=== PATIENT | male | born 1965 | race Two or more races ===

== ENCOUNTER 2021-01-12 14:35 | Inpatient (IN) | payer OTHER ==
[~2021-01-12] VITALS: Ht 172.7 cm; Wt 82.3 kg
--- NOTE | 2021-01-12 14:42 | NUR ---
KENJI FROM [facility]. EMS STATES HE TOOK 20 UNISOM PILLS WHICH CONTAINED 325 OF TYLENOL AND 50 BENADRYL AND ALSO SONSUMED LOTS OF ALCOHOL. PTS NIECE CALLED EMS BECAUSE HE WAS HAVING THOUGHTS OF SI. VSS. PT IS LETHARGIC AND NOT ANSWERING QUESTIONS.
--- NOTE | 2021-01-12 14:44 | NUR ---
PT ON LEGAL HOLD AND BELONGINGS IN LOCKER.
[2021-01-12 15:00] LABS: BASOPHILS % (AUTO) 1 % (0-1); EOSINOPHILS % (AUTO) 5 % (1-7); LYMPHOCYTES % (AUTO) 30 % (22-44); MEAN CORPUSCULAR HEMOGLOBIN 30.6 pg (27.5-34.5); MEAN CORPUSCULAR HGB CONC 33.8 g/dL (33.2-36.2); MEAN PLATELET VOLUME 9.4 fL (7.4-10.4); MONOCYTES % (AUTO) 11 % (2-9); NEUTROPHILS % (AUTO) 54 % (42-75); RED BLOOD COUNT 3.98 x10^6/uL (4.38-5.82); RED CELL DISTRIBUTION WIDTH 15.1 % (9.4-14.8)
[2021-01-12] MEDS ORDERED: NALOXONE 0.4 MG/ML, 1ML IVPush PRN (15:00)
[2021-01-12] MEDS: PLEASE ENTER ALLERGIES MC SCH ×2 (15:00→23:00)
[2021-01-12] MEDS ORDERED: SODIUM CHLORIDE 0.9% 1,000 ML IV ONE (15:00)
[2021-01-12] MEDS ORDERED: NALOXONE 0.4 MG/ML, 1ML ONE (15:05)
[2021-01-12 15:08] LABS: ALANINE AMINOTRANSFERASE 62 U/L (12-78); ALBUMIN 3.1 g/dL (3.4-5.0); ANION GAP 8 mmol/L (5-15); CALCIUM 8.3 mg/dL (8.5-10.1); CHLORIDE 116 mmol/L (98-107); CREATININE 0.51 mg/dL (0.7-1.3); SALICYLATE LEVEL 1.8 mg/dL (2.8-20.0)
--- NOTE | 2021-01-12 15:12 | NUR ---
NARCAN NOTED TO HAVE NO EFFECT ON PT
--- NOTE | 2021-01-12 15:15 | NUR ---
PT OFF UNIT IN IMAGING
[2021-01-12 15:20] LABS: ALKALINE PHOSPHATASE 167 U/L (45-117); BILIRUBIN,TOTAL 0.7 mg/dL (0.2-1.0); TOTAL PROTEIN 7.4 g/dL (6.4-8.2)
[2021-01-12] MEDS ORDERED: CEFTRIAXONE PMX 1GM/50ML 50 ML IV ONE (15:30)
[2021-01-12] MEDS ORDERED: AZITHROMYCIN 500 MG in SODIUM CHLORIDE 0.9% 250 ML IV ONE (15:30)
[2021-01-12 15:53] LABS: MD SCAN; PLATELET COUNT 47 x10^3/uL (130-400)
[2021-01-12] MEDS ORDERED: CEFTRIAXONE PMX 1GM/50ML 50 ML ONE (16:06)
--- NOTE | 2021-01-12 16:25 | NUR ---
PT NOTED TO ATTEMPT TO VOMIT, HOWEVER PT UNABLE TO DO SO, CONCERNS FOR ASPIRATION, SUCTION USED, PT DOES NOT APPEAR TO HAVE A GAG REFLEX WHILE SUCTIONING. REPORTED CHANGE TO PROVIDER. PT TRANSFERRED TO TRAUMA 2 FOR RSI.
[2021-01-12] MEDS ORDERED: PROPOFOL 100 ML IV PRN (17:00)
[2021-01-12] MEDS ORDERED: ROCURONIUM 10 MG/ML,10ML IVPush ONE (17:00)
[2021-01-12] MEDS ORDERED: ETOMIDATE 20 MG/10 ML IVPush ONE (17:00)
[2021-01-12] MEDS ORDERED: PIPERACILLIN/TAZO/PMX 3.375GM 50 ML IV ONE (17:00)
--- NOTE | 2021-01-12 17:06 | NUR ---
PT TRANSFERED TO T2 FOR INTUBATION. PT SOMNOLENT, W SONOROUS RESPIRATIONS. SPO2 >90% ON NC. NO GAG REFLUX PER ERP. PT INTUBATED BY ERP AT 1650 W ETOMIDATE AND ELVIN W 8.0 ET TUBE, 24 AT THE LIP. BP/SPO2/ECG MONITORING IN PLACE. SINUS TACH ON MONITOR. ETCO2 35. RICCO AND GONZALEZ RN AT BEDSIDE TO PLACE OG AND DECKER.
[2021-01-12] MEDS ORDERED: PHARMACY MAY ADJ FOR RENAL FX MC SCH (18:00)
--- NOTE | 2021-01-12 18:00 | NUR ---
REPORT TO CADE QUIROGA
[2021-01-12] MEDS ORDERED: ACETYLCYSTEINE IV ONE ×2 (18:19→20:15)
[2021-01-12] MEDS ORDERED: DEXTROSE 5% IV ONE ×2 (18:19→20:15)
[2021-01-12 18:26] LABS: TRIGLYCERIDES 125 mg/dL (50-200)
--- NOTE | 2021-01-12 18:30 | NUR ---
MEDS AND FLUIDS INFUSING NOTED ON MAR, BREATHING EVEN AND UNLABORED ON THE VENTILATOR AND TOLERATING WELL. WILL CONTINUE TO MONITOR.
[2021-01-12] MEDS ORDERED: PIPERACILLIN/TAZO/PMX 3.375GM 50 ML ONE (18:55)
[2021-01-12 18:59] LABS: AMPHETAMINE SCREEN, URINE Negative (Negative); BARBITURATE SCREEN, URINE Negative (Negative); BENZODIAZEPINE SCREEN, URINE Negative (Negative); CANNABINOID SCREEN, URINE Negative (Negative); COCAINE SCREEN, URINE Negative (Negative); METHADONE SCREEN, URINE Negative (Negative); OPIATE SCREEN, URINE Negative (Negative)
--- NOTE | 2021-01-12 19:00 | NUR ---
DR MCMILLAN AT BEDSIDE
--- NOTE | 2021-01-12 19:02 | NUR ---
REPORT TO YAMILEX MOHAMUD
--- NOTE | 2021-01-12 19:11 | NUR ---
REPORT FROM KIMBER MOHAMUD. ABX RUNNING. LAB AT BEDSIDE. DR MCMILLAN WANTS MUCAMIST STARTED. MED ORDERED FROM PHARMACY
[2021-01-12] MEDS ORDERED: VANCOMYCIN PMX 1GM/200ML 200 ML IV ONE (19:30)
[2021-01-12] MEDS ORDERED: FOLIC ACID 1 MG, THIAMINE 200 MG, MVI ADULT 10 ML in DEXTROSE 5% 1,000 ML IV SCH (19:30)
[2021-01-12] MEDS ORDERED: THIAMINE 100 MG in SODIUM CHLORIDE 0.9% 50 ML IV SCH (19:30)
[2021-01-12] MEDS: PIPERACILLIN/TAZO/PMX 3.375GM 50 ML IV SCH (19:30)
[2021-01-12] MEDS ORDERED: VANCOMYCIN PER PHARMACY MC PRN (19:30)
--- NOTE | 2021-01-12 19:47 | NUR ---
PTS SEDATION INCREASED DUE TO PTS AGITATION WHEN NG TUBE WAS ADJUSTED. PT NOW APPEARS COMFORTABLE. NG CONFIRMED BY AUSCULTATION. WAITING FOR XRAY CONFIRMATION. VSS. WILL CONTINUE TO MONITOR
[2021-01-12] MEDS ORDERED: PHARMACOKINETIC CONSULTATION MC ONE (20:30)
[2021-01-12] MEDS ORDERED: PHARMACOKINETIC MONITORING MC PRN (20:30)
[2021-01-12] MEDS ORDERED: POTASSIUM CHLORIDE 40 MEQ in SODIUM CHLORIDE 0.9% 500 ML IV ONE (20:49)
[2021-01-12] MEDS ORDERED: THIAMINE 200 MG in SODIUM CHLORIDE 0.9% 50 ML IV ONE (20:49)
--- NOTE | 2021-01-12 21:05 | NUR ---
pts 2nd bag of mucamyst running. 3rd piv started and thiamine running. pts son called for update. Son updated on pts condition
--- NOTE | 2021-01-12 22:11 | NUR ---
pt resting. vss. rt at bedside
[2021-01-13] MEDS ORDERED: ACETYLCYSTEINE IV ONE (00:15)
[2021-01-13] MEDS ORDERED: DEXTROSE 5% IV ONE (00:15)
[2021-01-13] MEDS: THIAMINE IV SCH (00:25)
[2021-01-13] MEDS: VANCOMYCIN 2,100 MG in SODIUM CHLORIDE 0.9% 500 ML IV ONE ×2 (00:25→02:45)
[2021-01-13] MEDS: FOLIC ACID IV SCH (00:25)
[2021-01-13] MEDS: DEXTROSE 5% IV SCH (00:25)
[2021-01-13] MEDS ORDERED: PROPOFOL 100 ML IV ONE (00:38)
[2021-01-13] MEDS: PROPOFOL 100 ML IV PRN ×6 (00:47→20:37)
[2021-01-13 00:58] LABS: INTERNATIONAL NORMALIZED RATIO 1.16 (0.93-1.1); PROTHROMBIN TIME 12.4 Seconds (9.6-11.5)
[2021-01-13] MEDS ORDERED: MIDAZOLAM 1 MG/ML, 2ML IVPush PRN (02:00)
[2021-01-13] MEDS ORDERED: SODIUM CHLORIDE 0.9%, 500ML IVBOLUS ONE (02:00)
[2021-01-13] MEDS ORDERED: ROCURONIUM 10MG/ML,5ML ONE (02:44)
[2021-01-13] MEDS ORDERED: PROPOFOL 10 MG/ML, 100ML IV ONE (02:44)
[2021-01-13] MEDS ORDERED: ETOMIDATE 20 MG/10 ML ONE (02:44)
[2021-01-13] MEDS: MIDAZOLAM 1 MG/ML, 5ML IVPush PRN ×4 (04:31→14:45)
[2021-01-13] MEDS: PIPERACILLIN/TAZO/PMX 3.375GM 50 ML IV SCH ×4 (04:44→23:19)
[2021-01-13 04:53] LABS: BASOPHILS % (AUTO) 1 % (0-1); EOSINOPHILS % (AUTO) 2 % (1-7); LYMPHOCYTES % (AUTO) 18 % (22-44); MEAN CORPUSCULAR HGB CONC 33.3 g/dL (33.2-36.2); MEAN PLATELET VOLUME 9.9 fL (7.4-10.4); MONOCYTES % (AUTO) 10 % (2-9); NEUTROPHILS % (AUTO) 69 % (42-75); RED BLOOD COUNT 3.43 x10^6/uL (4.38-5.82); RED CELL DISTRIBUTION WIDTH 15.2 % (9.4-14.8)
[2021-01-13 05:04] LABS: PLATELET COUNT 38 x10^3/uL (130-400)
[2021-01-13 05:05] LABS: MD NO
[2021-01-13 05:13] LABS: ALBUMIN 2.5 g/dL (3.4-5.0); ANION GAP 9 mmol/L (5-15); CHLORIDE 116 mmol/L (98-107)
[2021-01-13 05:17] LABS: ALANINE AMINOTRANSFERASE 52 U/L (12-78); ALKALINE PHOSPHATASE 106 U/L (45-117); BILIRUBIN,TOTAL 0.6 mg/dL (0.2-1.0); CREATININE 0.39 mg/dL (0.7-1.3); TOTAL PROTEIN 6.1 g/dL (6.4-8.2)
[2021-01-13] MEDS ORDERED: POTASSIUM CHLORIDE 40 MEQ in SODIUM CHLORIDE 0.9% 500 ML IV ONE (09:30)
[2021-01-13] MEDS ORDERED: FENTANYL PF 100 MCG/2ML ONE (09:38)
[2021-01-13] MEDS: FENTANYL PF 100 MCG/2ML IVPush PRN ×3 (09:42→14:20)
--- NOTE | 2021-01-13 14:29 | NUR ---
TF per RD recs: Promote w/ end goal rate of 70mL/hr (on propofol); 80mL/hr (OFF propofol). Addendum: 01/13/21 at [address] Amended: Links added.
[2021-01-13] MEDS ORDERED: MAGNESIUM SULFATE PMX 4GM/100M 100 ML IVPB ONE (15:00)
[2021-01-13 15:38] LABS: ALANINE AMINOTRANSFERASE 46 U/L (12-78)
[2021-01-13 15:46] LABS: INTERNATIONAL NORMALIZED RATIO 1.1 (0.93-1.1); PROTHROMBIN TIME 11.8 Seconds (9.6-11.5)
[2021-01-13] MEDS: VANCOMYCIN 1,600 MG in SODIUM CHLORIDE 0.9% 250 ML IV SCH (17:01)
[2021-01-13] MEDS: MIDAZOLAM HCL 50 MG in SODIUM CHLORIDE 0.9% 40 ML IV PRN (21:07)
[2021-01-14] MEDS: THIAMINE IV SCH (01:46)
[2021-01-14] MEDS: FOLIC ACID IV SCH (01:46)
[2021-01-14] MEDS: DEXTROSE 5% IV SCH (01:46)
[2021-01-14] MEDS: MIDAZOLAM 1 MG/ML, 5ML IVPush PRN (02:13)
[2021-01-14] MEDS: VANCOMYCIN 1,600 MG in SODIUM CHLORIDE 0.9% 250 ML IV SCH ×2 (03:21→14:43)
[2021-01-14 03:25] LABS: BASOPHILS % (AUTO) 1 % (0-1); EOSINOPHILS % (AUTO) 4 % (1-7); LYMPHOCYTES % (AUTO) 19 % (22-44); MEAN CORPUSCULAR HEMOGLOBIN 30.6 pg (27.5-34.5); MEAN CORPUSCULAR HGB CONC 33.4 g/dL (33.2-36.2); MEAN PLATELET VOLUME 10.1 fL (7.4-10.4); MONOCYTES % (AUTO) 11 % (2-9); NEUTROPHILS % (AUTO) 65 % (42-75); RED BLOOD COUNT 3.35 x10^6/uL (4.38-5.82); RED CELL DISTRIBUTION WIDTH 15.1 % (9.4-14.8)
[2021-01-14 03:29] LABS: PLATELET COUNT 37 x10^3/uL (130-400)
[2021-01-14 03:31] LABS: MD NO
[2021-01-14 03:38] LABS: ALANINE AMINOTRANSFERASE 40 U/L (12-78); ALBUMIN 2.4 g/dL (3.4-5.0); BILIRUBIN, DIRECT 0.4 mg/dL (0.1-0.2)
[2021-01-14 03:39] LABS: ALKALINE PHOSPHATASE 95 U/L (45-117); BILIRUBIN,INDIRECT 0.3 mg/dL (0.0-2.0); BILIRUBIN,TOTAL 0.7 mg/dL (0.2-1.0); TOTAL PROTEIN 5.7 g/dL (6.4-8.2)
[2021-01-14] MEDS: PROPOFOL 100 ML IV PRN ×2 (04:17→08:22)
[2021-01-14] MEDS: PIPERACILLIN/TAZO/PMX 3.375GM 50 ML IV SCH ×3 (06:03→16:56)
[2021-01-14] MEDS: MIDAZOLAM HCL 50 MG in SODIUM CHLORIDE 0.9% 40 ML IV PRN (06:34)
[2021-01-14 07:35] LABS: ANION GAP 5 mmol/L (5-15); CALCIUM 7.2 mg/dL (8.5-10.1); CHLORIDE 109 mmol/L (98-107)
[2021-01-14] MEDS: POTASSIUM CHLORIDE 20 MEQ PACKET NG SCH ×2 (09:22→20:50)
[2021-01-14] MEDS ORDERED: LORazepam 1MG TABLET PO PRN ×4 (17:30)
[2021-01-14] MEDS ORDERED: LORazepam 0.5MG TABLET PO PRN (17:30)
[2021-01-14] MEDS: CHLORDIAZEPOXIDE 25 MG CAPSULE PO SCH ×2 (17:30→20:50)
[2021-01-14] MEDS: THIAMINE 100MG TABLET PO SCH (20:50)
[2021-01-15] MEDS: PIPERACILLIN/TAZO/PMX 3.375GM 50 ML IV SCH ×5 (00:19→23:45)
[2021-01-15 01:51] VITALS: BP 112/62
[2021-01-15] MEDS: THIAMINE IV SCH (02:45)
[2021-01-15] MEDS: DEXTROSE 5% IV SCH (02:45)
[2021-01-15] MEDS: FOLIC ACID IV SCH (02:45)
[2021-01-15] MEDS: VANCOMYCIN 1,600 MG in SODIUM CHLORIDE 0.9% 250 ML IV SCH (03:59)
[2021-01-15] MEDS: CHLORDIAZEPOXIDE 25 MG CAPSULE PO SCH ×5 (06:37→20:46)
[2021-01-15 08:11] LABS: MEAN CORPUSCULAR HEMOGLOBIN 30.5 pg (27.5-34.5); MEAN CORPUSCULAR HGB CONC 33.3 g/dL (33.2-36.2); MEAN PLATELET VOLUME 9.7 fL (7.4-10.4); RED BLOOD COUNT 3.63 x10^6/uL (4.38-5.82); RED CELL DISTRIBUTION WIDTH 14.8 % (9.4-14.8)
[2021-01-15 08:23] LABS: ALANINE AMINOTRANSFERASE 35 U/L (12-78); ALBUMIN 2.5 g/dL (3.4-5.0); ANION GAP 6 mmol/L (5-15); CALCIUM 7.8 mg/dL (8.5-10.1); CHLORIDE 110 mmol/L (98-107); CREATININE 0.69 mg/dL (0.7-1.3)
[2021-01-15 08:25] LABS: ALKALINE PHOSPHATASE 111 U/L (45-117); TOTAL PROTEIN 6.2 g/dL (6.4-8.2)
[2021-01-15 08:26] LABS: MD YES; PLATELET COUNT 48 x10^3/uL (130-400)
[2021-01-15 08:28] LABS: BAND#(MANUAL) 0.22 x10^3/uL; BANDS%(MANUAL) 3 % (0-7); EOS#(MANUAL) 0.14 x10^3/uL (0.0-0.4); EOS% (MANUAL) 2 % (1-7); LYMPH#(MANUAL) 1.73 x10^3/uL (1-3.4); LYMPHS% (MANUAL) 24 % (22-44); MONOS#(MANUAL) 1.22 x10^3/uL (0.3-2.7); MONOS% (MANUAL) 17 % (2-9); SEG#(MANUAL) 3.89 x10^3/uL (1.8-6.8); SEGS% (MANUAL) 54 % (42-75)
[2021-01-15 08:29] LABS: <PLATELET ESTIMATE> DECREASED; LARGE PLATELETS 1+
[2021-01-15 08:30] LABS: <RBC MORPHOLOGY> NORMAL
[2021-01-15] MEDS: MULTIVITAMINS/MINERALS TABLET PO SCH (08:53)
[2021-01-15] MEDS: FOLIC ACID 1 MG TABLET PO SCH (08:53)
[2021-01-15] MEDS: THIAMINE 100MG TABLET PO SCH ×2 (08:54→20:46)
[2021-01-15 08:55] VITALS: BP 115/66
[2021-01-15] MEDS ORDERED: MAGNESIUM SULFATE PMX 2GM/50ML 50 ML IV ONE (10:00)
[2021-01-15 10:35] VITALS: BP 121/68
[2021-01-15] MEDS ORDERED: VANCOMYCIN 1,600 MG in SODIUM CHLORIDE 0.9% 250 ML IV SCH (14:00)
[2021-01-15] MEDS ORDERED: FUROSEMIDE 20 MG/2 ML IV ONE (15:00)
[2021-01-15] MEDS ORDERED: POTASSIUM CHLORIDE 20 MEQ TAB.ER.PRT PO ONE (15:00)
[2021-01-15] MEDS: OXYcodone IR 5MG TABLET PO PRN (15:26)
[2021-01-15 15:27] VITALS: BP 135/70
[2021-01-15] MEDS ORDERED: OMNIPAQUE 350 MG/ML, 100ML BOTTLE ONE (17:39)
[2021-01-15 19:30] VITALS: BP 148/77
[2021-01-16 01:16] VITALS: BP 120/60
[2021-01-16] MEDS: PIPERACILLIN/TAZO/PMX 3.375GM 50 ML IV SCH ×4 (05:43→23:59)
[2021-01-16 05:57] LABS: BASOPHILS % (AUTO) 1 % (0-1); EOSINOPHILS % (AUTO) 2 % (1-7); LYMPHOCYTES % (AUTO) 19 % (22-44); MEAN CORPUSCULAR HEMOGLOBIN 30.5 pg (27.5-34.5); MEAN CORPUSCULAR HGB CONC 33.6 g/dL (33.2-36.2); MEAN PLATELET VOLUME 9.7 fL (7.4-10.4); MONOCYTES % (AUTO) 14 % (2-9); NEUTROPHILS % (AUTO) 63 % (42-75); PLATELET COUNT 65 x10^3/uL (130-400); RED BLOOD COUNT 3.74 x10^6/uL (4.38-5.82); RED CELL DISTRIBUTION WIDTH 14.7 % (9.4-14.8)
[2021-01-16 06:04] LABS: CALCIUM 8.6 mg/dL (8.5-10.1); CHLORIDE 105 mmol/L (98-107)
[2021-01-16 06:07] LABS: MD NO
[2021-01-16 06:10] LABS: ALANINE AMINOTRANSFERASE 35 U/L (12-78); ALBUMIN 2.7 g/dL (3.4-5.0); ALKALINE PHOSPHATASE 113 U/L (45-117); ANION GAP 8 mmol/L (5-15); BILIRUBIN,TOTAL 1.3 mg/dL (0.2-1.0); TOTAL PROTEIN 6.7 g/dL (6.4-8.2)
[2021-01-16 07:32] VITALS: BP 112/54
[2021-01-16] MEDS: FOLIC ACID 1 MG TABLET PO SCH (10:15)
[2021-01-16] MEDS: MULTIVITAMINS/MINERALS TABLET PO SCH (10:15)
[2021-01-16] MEDS: THIAMINE 100MG TABLET PO SCH ×2 (10:15→22:06)
[2021-01-16 12:00] VITALS: BP 128/62
[2021-01-16] MEDS: OXYcodone IR 5MG TABLET PO PRN (13:04)
[2021-01-16] MEDS: FAMOTIDINE 20 MG TABLET PO SCH ×2 (13:05→22:06)
[2021-01-16 19:19] VITALS: BP_SYST 161; BP_SYST 168; BP_DIAS 84; BP_DIAS 85
[2021-01-17 00:02] VITALS: BP 117/68
[2021-01-17] MEDS: IBUPROFEN 600 MG TABLET PO PRN (01:49)
[2021-01-17 05:18] LABS: BASOPHILS % (AUTO) 1 % (0-1); EOSINOPHILS % (AUTO) 2 % (1-7); LYMPHOCYTES % (AUTO) 15 % (22-44); MEAN CORPUSCULAR HEMOGLOBIN 30.7 pg (27.5-34.5); MEAN CORPUSCULAR HGB CONC 33.9 g/dL (33.2-36.2); MEAN PLATELET VOLUME 9.4 fL (7.4-10.4); MONOCYTES % (AUTO) 20 % (2-9); NEUTROPHILS % (AUTO) 62 % (42-75); PLATELET COUNT 74 x10^3/uL (130-400); RED BLOOD COUNT 3.54 x10^6/uL (4.38-5.82); RED CELL DISTRIBUTION WIDTH 14.9 % (9.4-14.8)
[2021-01-17 05:32] LABS: CALCIUM 8.2 mg/dL (8.5-10.1); CHLORIDE 101 mmol/L (98-107)
[2021-01-17 05:35] LABS: ANION GAP 7 mmol/L (5-15); CREATININE 0.74 mg/dL (0.7-1.3)
[2021-01-17 05:47] LABS: MD SCAN
[2021-01-17 06:10] VITALS: BP 97/59
[2021-01-17] MEDS: PIPERACILLIN/TAZO/PMX 3.375GM 50 ML IV SCH ×3 (06:10→17:39)
[2021-01-17 06:57] VITALS: BP 91/53
[2021-01-17] MEDS: THIAMINE 100MG TABLET PO SCH ×2 (08:12→22:19)
[2021-01-17] MEDS: BUPROPION SR 100 MG TABLET PO SCH (08:13)
[2021-01-17] MEDS: FOLIC ACID 1 MG TABLET PO SCH (08:13)
[2021-01-17] MEDS: MULTIVITAMINS/MINERALS TABLET PO SCH (08:13)
[2021-01-17] MEDS: FAMOTIDINE 20 MG TABLET PO SCH ×2 (08:13→22:19)
[2021-01-17] MEDS ORDERED: NICOTINE 21 MG/24 HR PATCH.TD24 TD ONE (11:30)
[2021-01-17 11:45] LABS: MICROSCOPIC NOT IND
[2021-01-17 14:59] VITALS: BP 125/65
[2021-01-17 18:21] VITALS: BP 159/80
[2021-01-17 22:34] VITALS: BP 143/73
[2021-01-17] MEDS: OXYcodone IR 5MG TABLET PO PRN (22:34)
[2021-01-18] MEDS: PIPERACILLIN/TAZO/PMX 3.375GM 50 ML IV SCH ×4 (00:59→17:08)
[2021-01-18] MEDS ORDERED: MELATONIN 5 MG TABLET ONE (01:15)
[2021-01-18 01:22] VITALS: BP 124/63
[2021-01-18] MEDS ORDERED: MELATONIN 5 MG TABLET PO ONE (01:30)
[2021-01-18] MEDS: IBUPROFEN 600 MG TABLET PO PRN (05:37)
[2021-01-18 06:58] VITALS: BP 103/57
[2021-01-18] MEDS: THIAMINE 100MG TABLET PO SCH ×2 (08:08→20:38)
[2021-01-18] MEDS: MULTIVITAMINS/MINERALS TABLET PO SCH (08:08)
[2021-01-18] MEDS: FOLIC ACID 1 MG TABLET PO SCH (08:08)
[2021-01-18] MEDS: FAMOTIDINE 20 MG TABLET PO SCH ×2 (08:08→20:38)
[2021-01-18] MEDS: BUPROPION SR 100 MG TABLET PO SCH (08:08)
[2021-01-18 12:22] VITALS: BP 95/56
[2021-01-18 20:24] VITALS: BP 122/68
[2021-01-19] MEDS: PIPERACILLIN/TAZO/PMX 3.375GM 50 ML IV SCH ×2 (00:13→05:52)
[2021-01-19 00:20] VITALS: BP 131/70
[2021-01-19 06:23] VITALS: BP 127/72
[2021-01-19 08:08] LABS: ANION GAP 6 mmol/L (5-15); CALCIUM 8.3 mg/dL (8.5-10.1); CHLORIDE 107 mmol/L (98-107); CREATININE 0.74 mg/dL (0.7-1.3)
[2021-01-19] MEDS: MULTIVITAMINS/MINERALS TABLET PO SCH (09:12)
[2021-01-19] MEDS: FAMOTIDINE 20 MG TABLET PO SCH (09:12)
[2021-01-19] MEDS: BUPROPION SR 100 MG TABLET PO SCH (09:12)
[2021-01-19] MEDS: THIAMINE 100MG TABLET PO SCH (09:12)
[2021-01-19] MEDS ORDERED: BUPR-173 PO (12:07)
[2021-01-19] MEDS ORDERED: MULT-484 PO (12:07)
[2021-01-19 12:15] VITALS: BP 122/70
== END 2021-01-19 13:42 | DRG 917 ==
LOC: ED 16:58 → SUATTDRO 17:24 → EDIP 17:25 → ED 17:35 → CCU 23:02 → ICU 01-13 09:50 → 4WST 01-15 10:49
PROVIDERS: ADMIT Internal Medicine; ATTEND Hospitalist
PROC: 5A1945Z Respiratory Ventilation, 24-96 Consecutive Hours (ICD-10-PCS; principal; 2021-01-12)
PROC: 0BH17EZ Insertion of Endotracheal Airway into Trachea, Via Natural or Artificial Opening (ICD-10-PCS; 2021-01-12)
DX: T45.0X2A Poisoning by antiallergic and antiemetic drugs, intentional self-harm, initial encounter (principal); G92 Toxic encephalopathy; J96.00 Acute respiratory failure, unspecified whether with hypoxia or hypercapnia; J69.0 Pneumonitis due to inhalation of food and vomit; E87.0 Hyperosmolality and hypernatremia; F33.2 Major depressive disorder, recurrent severe without psychotic features; J98.11 Atelectasis; R18.8 Other ascites; F10.239 Alcohol dependence with withdrawal, unspecified; Z99.11 Dependence on respirator [ventilator] status; D63.8 Anemia in other chronic diseases classified elsewhere; T39.1X2A Poisoning by 4-Aminophenol derivatives, intentional self-harm, initial encounter; F41.9 Anxiety disorder, unspecified; F10.229 Alcohol dependence with intoxication, unspecified; D69.6 Thrombocytopenia, unspecified; E83.42 Hypomagnesemia; Z20.822 Contact with and (suspected) exposure to COVID-19; E87.6 Hypokalemia; E88.09 Other disorders of plasma-protein metabolism, not elsewhere classified; F17.210 Nicotine dependence, cigarettes, uncomplicated; K21.9 Gastro-esophageal reflux disease without esophagitis; Z90.49 Acquired absence of other specified parts of digestive tract; Y92.89 Other specified places as the place of occurrence of the external cause
CPT/HCPCS: 31500; 36415; 36600; 70450; 70553; 71045; 74018; 74177; 80048; 80053; 80076; 80202; 80299; 80307; 80320; 80329; 81003; 82803; 82962; 83605; 83735; 84100; 84145; 84450; 84460; 84478; 85025; 85610; 87040; 87070; 87081; 87205; 93005; 94002; 94003; 96374; G0378; J0132; J0456; J0696; J2250; J2310; J2543; J2704; J3010; J3370; J3411; J3480; J7060; J7070; Q9967; G0480; J1940; J3475; J7030; J7040; J7050; U0003